=== PATIENT | male | born 2000 | race Hispanic/Latino ===

== ENCOUNTER 2023-08-09 14:08 | Emergency (ER) | payer OTHER ==
[~2023-08-09] VITALS: Ht 172.7 cm; Wt 95.3 kg
[2023-08-09 14:31] VITALS: BP 114/71; PULSE 71; RESP 16; TEMP 98.1; O2SAT 95
[2023-08-09 15:28] VITALS: BP 117/80; PULSE 69; RESP 16; TEMP 98.1; O2SAT 95
== END 2023-08-09 15:29 | disposition home or self-care (01) ==
LOC: ER 14:08
DX: S89.92XA Unspecified injury of left lower leg, initial encounter (principal); W19.XXXA Unspecified fall, initial encounter; Y93.89 Activity, other specified; Y92.89 Other specified places as the place of occurrence of the external cause; Y99.0 Civilian activity done for income or pay
CPT/HCPCS: 99284; 73560-LT